=== PATIENT | male | born 1955 | race African-American/Black ===

== ENCOUNTER 2022-07-19 11:10 | Inpatient (IN) | payer OTHER, MEDICAID ==
[~2022-07-19] VITALS: Ht 167.6 cm; Wt 91.6 kg
[2022-07-19 12:10] LABS: HEMATOCRIT. 43.6 % (42.0-52.0); HEMOGLOBIN. 14.6 g/dL (14.0-18.0); MEAN CORPUSCULAR VOLUME 83.8 fL (80.0-94.0); MEAN PLATELET VOLUME 8.2 fl (7.4-10.4); PLATELET 292 x1000/uL (130-400); RED BLOOD CELL COUNT 5.21 mill/uL (4.7-6.1); RED CELL DISTRIBUTION WIDTH 14.5 % (11.6-14.6)
[2022-07-19 12:14] LABS: CHLORIDE 95 mEq/L (98-107)
[2022-07-19] MEDS ORDERED: MORPHINE SULFATE 4 MG/ML CPJ (NOT FOR IM USE) IV STA (13:19)
[2022-07-19] MEDS ORDERED: ONDANSETRON HCL 4MG/2ML INJ IV STA (13:19)
[2022-07-19 13:22] LABS: PLATELET ESTIMATE NORMAL
[2022-07-19] MEDS ORDERED: POTASSIUM CHLORIDE INJ 40 MEQ in DEXT 5% WATER 500 ML IV ONE (13:30)
[2022-07-19] MEDS ORDERED: SODIUM CHLORIDE 0.9% 1,000 ML IV ONE (13:30)
[2022-07-19 14:36] LABS: CLARITY URINE TURBID (CLEAR); COLOR URINE DARK YELLOW (YELLOW); KETONES URINE NEGATIVE (NEGATIVE); LEUKOCYTE ESTERASE URINE 2+ (NEGATIVE); NITRITE URINE NEGATIVE (NEGATIVE); OCCULT BLOOD URINE 1+ (NEGATIVE); PROTEIN URINE 2+ (NEGATIVE); SPECIFIC GRAVITY URINE 1.019 (1.005-1.030)
[2022-07-19] MEDS ORDERED: ACETAMINOPHEN 325MG TABLET PO PRN ×2 (15:00)
[2022-07-19] MEDS ORDERED: MAGNESIUM/ALUMINUM HYDROXIDE/SIMETHICONE 30ML UDC PO PRN (15:00)
[2022-07-19] MEDS ORDERED: CLONIDINE 0.1MG TABLET PO PRN (15:00)
[2022-07-19] MEDS ORDERED: GUAIFENESIN 200MG/10ML SUGAR FREE UDC PO PRN (15:00)
[2022-07-19] MEDS ORDERED: DOCUSATE SODIUM 100MG CAPSULE PO PRN (15:00)
[2022-07-19 15:32] LABS: AMYLASE 148 IU/L (25-115)
[2022-07-19 15:57] VITALS: BP 114/60
[2022-07-19 16:29] VITALS: BP 114/60
[2022-07-19] MEDS: LACTATED RINGERS 1,000 ML IV SCH (16:51)
[2022-07-19] MEDS: PANTOPRAZOLE SODIUM 40 MG/VIAL IV SCH (16:59)
[2022-07-19] MEDS: ENOXAPARIN 40MG/0.4ML SYR SUBCUT SCH (17:00)
[2022-07-19 20:00] VITALS: BP 117/63
[2022-07-19] MEDS ORDERED: NALOXONE HCL 0.4MG/ML VIAL IV PRN (20:00)
[2022-07-19] MEDS: MORPHINE SULFATE 2 MG/ML CPJ (NOT FOR IM USE) IV PRN (20:02)
[2022-07-19] MEDS: ONDANSETRON HCL 4MG/2ML INJ IV PRN (20:02)
[2022-07-19] MEDS: PIPERACILLIN/TAZOBACTAM 3.375 G in DEXTROSE 5% WATER 50 ML IV SCH (21:25)
[2022-07-20] VITALS: BP 122/61
[2022-07-20] MEDS: LACTATED RINGERS 1,000 ML IV SCH ×3 (00:24→21:00)
[2022-07-20] MEDS: ONDANSETRON HCL 4MG/2ML INJ IV PRN (01:40)
[2022-07-20] MEDS: MORPHINE SULFATE 2 MG/ML CPJ (NOT FOR IM USE) IV PRN (01:41)
[2022-07-20 04:00] VITALS: BP 121/64
[2022-07-20] MEDS: PIPERACILLIN/TAZOBACTAM 3.375 G in DEXTROSE 5% WATER 50 ML IV SCH ×3 (05:57→23:00)
[2022-07-20 07:23] LABS: HEMATOCRIT. 37.9 % (42.0-52.0); HEMOGLOBIN. 12.7 g/dL (14.0-18.0); MEAN CORPUSCULAR HEMOGLOBIN 27.7 pg (28.0-32.0); MEAN CORPUSCULAR VOLUME 82.8 fL (80.0-94.0); MEAN PLATELET VOLUME 8.3 fl (7.4-10.4); PLATELET 262 x1000/uL (130-400); RED BLOOD CELL COUNT 4.58 mill/uL (4.7-6.1); RED CELL DISTRIBUTION WIDTH 14.2 % (11.6-14.6)
[2022-07-20 08:00] VITALS: BP 127/63
[2022-07-20] MEDS: PANTOPRAZOLE SODIUM 40 MG/VIAL IV SCH (08:33)
[2022-07-20 08:51] LABS: CHLORIDE 100 mEq/L (98-107)
[2022-07-20 09:06] LABS: HDL CHOLESTEROL 20 mg/dL (40-59); LDL CHOLESTEROL 55 mg/dL (5-100); T4 FREE 1.37 ng/dL (0.76-1.46)
[2022-07-20 09:52] LABS: *AMPHETAMINES SCREEN URINE NEGATIVE (NEGATIVE); *BARBITURATES SCREEN URINE NEGATIVE (NEGATIVE); *BENZODIAZEPINES SCREEN URINE NEGATIVE (NEGATIVE); *COCAINE SCREEN URINE NEGATIVE (NEGATIVE); CANNABINOID URINE SCREEN PRESUMTIVE POSITIVE (NEGATIVE); METHADONE URINE SCREEN NEGATIVE (NEGATIVE); OPIATES URINE SCREEN NEGATIVE (NEGATIVE); PHENCYCLIDINE URINE SCREEN NEGATIVE (NEGATIVE)
[2022-07-20 12:00] VITALS: BP 124/63
[2022-07-20] MEDS: KCL 20MEQ/100ML PREMIX 100 ML IV SCH ×6 (12:00→22:00)
[2022-07-20 13:59] LABS: PLATELET ESTIMATE NORMAL
[2022-07-20 16:00] VITALS: BP 119/60
[2022-07-20] MEDS: ENOXAPARIN 40MG/0.4ML SYR SUBCUT SCH (17:00)
[2022-07-20 19:35] LABS: TOTAL IRON BINDING CAPACITY 238 ug/dL (250-450)
[2022-07-20 20:00] VITALS: BP 122/64
[2022-07-20 20:00] LABS: FOLIC ACID (FOLATE) SERUM 8.7 ng/mL (>5.38)
[2022-07-21] VITALS: BP 130/68
[2022-07-21 04:00] VITALS: BP 127/72
[2022-07-21] MEDS: PIPERACILLIN/TAZOBACTAM 3.375 G in DEXTROSE 5% WATER 50 ML IV SCH ×3 (05:33→21:56)
[2022-07-21 06:09] LABS: HEMATOCRIT. 35.6 % (42.0-52.0); HEMOGLOBIN. 12.1 g/dL (14.0-18.0); MEAN CORPUSCULAR HEMOGLOBIN 27.9 pg (28.0-32.0); MEAN CORPUSCULAR VOLUME 82.3 fL (80.0-94.0); MEAN PLATELET VOLUME 8.6 fl (7.4-10.4); PLATELET 256 x1000/uL (130-400); RED BLOOD CELL COUNT 4.33 mill/uL (4.7-6.1); RED CELL DISTRIBUTION WIDTH 14.2 % (11.6-14.6)
[2022-07-21 06:18] LABS: CHLORIDE 104 mEq/L (98-107)
[2022-07-21] MEDS: LACTATED RINGERS 1,000 ML IV SCH ×2 (07:00→21:00)
[2022-07-21 08:00] VITALS: BP 120/53
[2022-07-21] MEDS ORDERED: GADOTERATE MEGLUMINE 5 MMOL/10 ML VIAL IV ONE (09:30)
[2022-07-21 12:00] VITALS: BP 140/68
[2022-07-21] MEDS: PANTOPRAZOLE SODIUM 40 MG/VIAL IV SCH (12:28)
[2022-07-21] MEDS: KCL 20MEQ/100ML PREMIX 100 ML IV SCH ×3 (13:00→15:00)
[2022-07-21 14:28] LABS: PLATELET ESTIMATE NORMAL
[2022-07-21 16:00] VITALS: BP 138/59
[2022-07-21] MEDS: FERROUS SULFATE 325MG TABLET PO SCH (18:40)
[2022-07-21] MEDS: ASCORBIC ACID 500 MG TABLET PO SCH (18:40)
[2022-07-21 20:46] LABS: HEMATOCRIT 35.7 % (42.0-52.0); HEMOGLOBIN 11.9 g/dL (14.0-18.0); MEAN CORPUSCULAR HEMOGLOBIN 27.4 pg (28.0-32.0); PLATELET 276 x1000/uL (130-400); RED BLOOD CELL COUNT 4.35 mill/uL (4.7-6.1); RED CELL DISTRIBUTION WIDTH 14.4 % (11.6-14.6)
[2022-07-21 20:52] LABS: CHLORIDE 103 mEq/L (98-107)
[2022-07-21] MEDS ORDERED: POTASSIUM CHLORIDE 20MEQ TABLET SR PO NR (21:15)
[2022-07-21] MEDS: ENOXAPARIN 30MG/0.3ML SYR SUBCUT SCH (21:43)
[2022-07-22] VITALS: BP 143/62
[2022-07-22] MEDS: LACTATED RINGERS 1,000 ML IV SCH ×3 (03:00→23:00)
[2022-07-22 04:00] VITALS: BP 128/61
[2022-07-22 05:45] LABS: HEMATOCRIT. 35.3 % (42.0-52.0); HEMOGLOBIN. 11.9 g/dL (14.0-18.0); MEAN CORPUSCULAR HEMOGLOBIN 27.5 pg (28.0-32.0); MEAN PLATELET VOLUME 8.5 fl (7.4-10.4); PLATELET 260 x1000/uL (130-400); RED BLOOD CELL COUNT 4.31 mill/uL (4.7-6.1); RED CELL DISTRIBUTION WIDTH 14.4 % (11.6-14.6)
[2022-07-22] MEDS: PIPERACILLIN/TAZOBACTAM 3.375 G in DEXTROSE 5% WATER 50 ML IV SCH ×3 (05:45→22:00)
[2022-07-22 05:53] LABS: CHLORIDE 104 mEq/L (98-107)
[2022-07-22] MEDS ORDERED: POTASSIUM CHLORIDE 20MEQ TABLET SR PO NR (06:00)
[2022-07-22 06:34] LABS: PLATELET ESTIMATE NORMAL
[2022-07-22] MEDS: FERROUS SULFATE 325MG TABLET PO SCH ×2 (07:50→17:45)
[2022-07-22 08:00] VITALS: BP 135/68
[2022-07-22] MEDS: ENOXAPARIN 30MG/0.3ML SYR SUBCUT SCH (08:59)
[2022-07-22] MEDS: PANTOPRAZOLE SODIUM 40 MG/VIAL IV SCH (08:59)
[2022-07-22] MEDS: ASCORBIC ACID 500 MG TABLET PO SCH ×2 (08:59→17:46)
[2022-07-22 12:00] VITALS: BP 156/61
[2022-07-22] MEDS: KCL 20MEQ/100ML PREMIX 100 ML IV SCH ×2 (12:09→16:12)
[2022-07-22 16:00] VITALS: BP 124/66
[2022-07-22 16:44] LABS: PROTHROMBIN TIME 50.5 sec (9.6-11.0)
[2022-07-22 17:09] LABS: INR 5.2
[2022-07-22] MEDS: AMLODIPINE 5MG TABLET PO SCH (17:46)
[2022-07-22] MEDS: ONDANSETRON HCL 4MG/2ML INJ IV PRN (18:42)
[2022-07-22 20:00] VITALS: BP 137/66
[2022-07-23 04:00] VITALS: BP 124/69
[2022-07-23] MEDS: PIPERACILLIN/TAZOBACTAM 3.375 G in DEXTROSE 5% WATER 50 ML IV SCH ×3 (06:03→21:24)
[2022-07-23 06:30] LABS: CHLORIDE 100 mEq/L (98-107); HEMOGLOBIN. 11.5 g/dL (14.0-18.0); MEAN CORPUSCULAR HEMOGLOBIN 27.5 pg (28.0-32.0); MEAN CORPUSCULAR VOLUME 81.1 fL (80.0-94.0); MEAN PLATELET VOLUME 8.8 fl (7.4-10.4); PLATELET 278 x1000/uL (130-400); RED BLOOD CELL COUNT 4.19 mill/uL (4.7-6.1); RED CELL DISTRIBUTION WIDTH 14.3 % (11.6-14.6)
[2022-07-23 08:00] VITALS: BP 134/67
[2022-07-23] MEDS: LACTATED RINGERS 1,000 ML IV SCH ×2 (09:00→19:00)
[2022-07-23] MEDS: ASCORBIC ACID 500 MG TABLET PO SCH ×2 (09:12→17:00)
[2022-07-23] MEDS: AMLODIPINE 5MG TABLET PO SCH (09:12)
[2022-07-23] MEDS: FERROUS SULFATE 325MG TABLET PO SCH ×2 (09:12→18:17)
[2022-07-23] MEDS: KCL 20MEQ/100ML PREMIX 100 ML IV SCH ×2 (09:13→13:03)
[2022-07-23] MEDS: PANTOPRAZOLE SODIUM 40 MG/VIAL IV SCH (09:30)
[2022-07-23] MEDS: MORPHINE SULFATE 2 MG/ML CPJ (NOT FOR IM USE) IV PRN (10:20)
[2022-07-23 12:00] VITALS: BP 112/64
[2022-07-23 13:38] LABS: INR 1.2; PROTHROMBIN TIME 12.9 sec (9.6-11.0)
[2022-07-23] MEDS: PHYTONADIONE 10MG/ML AMP SUBCUT SCH (14:09)
[2022-07-23 14:25] LABS: PLATELET ESTIMATE NORMAL
[2022-07-23 16:00] VITALS: BP 131/65
[2022-07-23 20:00] VITALS: BP 154/77
[2022-07-23 22:04] LABS: PARTIAL THROMBOPLASTIN TIME 28.7 sec (23.4-31.0)
[2022-07-24] VITALS: BP 141/71
[2022-07-24 04:00] VITALS: BP 120/73
[2022-07-24] MEDS: LACTATED RINGERS 1,000 ML IV SCH (05:50)
[2022-07-24] MEDS: PIPERACILLIN/TAZOBACTAM 3.375 G in DEXTROSE 5% WATER 50 ML IV SCH (05:50)
[2022-07-24 07:52] LABS: INR 1.2; PROTHROMBIN TIME 12.4 sec (9.6-11.0)
[2022-07-24 08:00] VITALS: BP 122/69
[2022-07-24 08:36] LABS: CHLORIDE 103 mEq/L (98-107)
[2022-07-24] MEDS: PHYTONADIONE 10MG/ML AMP SUBCUT SCH (09:28)
[2022-07-24] MEDS: AMLODIPINE 5MG TABLET PO SCH (09:28)
[2022-07-24] MEDS: PANTOPRAZOLE SODIUM 40 MG/VIAL IV SCH (09:28)
[2022-07-24] MEDS: ASCORBIC ACID 500 MG TABLET PO SCH (09:28)
[2022-07-24] MEDS: FERROUS SULFATE 325MG TABLET PO SCH (09:28)
[2022-07-24 12:00] VITALS: BP 119/80
[2022-07-24 12:07] VITALS: BP 119/80
== END 2022-07-24 12:55 | disposition short-term general hospital (02) | DRG 438 ==
LOC: ER 12:13 → 6EST 13:35 → EDBEDREQ 13:42 → EDBEDREQTM 13:42
PROVIDERS: ADMIT Internal Medicine; ATTEND Internal Medicine
DX: K85.90 Acute pancreatitis without necrosis or infection, unspecified (principal); E43 Unspecified severe protein-calorie malnutrition; E87.1 Hypo-osmolality and hyponatremia; N39.0 Urinary tract infection, site not specified; D68.9 Coagulation defect, unspecified; R17 Unspecified jaundice; E78.5 Hyperlipidemia, unspecified; E78.00 Pure hypercholesterolemia, unspecified; E87.6 Hypokalemia; D64.9 Anemia, unspecified; Z68.32 Body mass index [BMI] 32.0-32.9, adult; E88.09 Other disorders of plasma-protein metabolism, not elsewhere classified; F12.10 Cannabis abuse, uncomplicated; I10 Essential (primary) hypertension; Z20.822 Contact with and (suspected) exposure to COVID-19; K83.8 Other specified diseases of biliary tract; N21.0 Calculus in bladder; Z79.82 Long term (current) use of aspirin; Z90.49 Acquired absence of other specified parts of digestive tract
CPT/HCPCS: 36415; 74176; 74183; 76700; 80048; 80053; 80061; 80076; 80305; 81003; 82105; 82150; 82378; 82607; 82728; 82746; 83540; 83550; 83605; 83615; 83735; 84132; 84439; 84443; 85025; 85027; 85044; 85362; 85384; 86301; 86850; 86900; 93005; 93970; 99285; A9577; C1893; C9113; J1650; J2270; J2405; J2543; J3430; J3480; J7030; J7060; U0003; U0005